=== PATIENT | female | born 1930 | race Caucasian/White ===

== ENCOUNTER 2019-01-07 15:12 | Emergency (ER) | payer MEDICARE, BC ==
[2019-01-07 15:21] VITALS: RESP 18
--- NOTE | 2019-01-07 15:41 | ED ---
Chest Pain HPI - General Chief Complaint: Chest Pain Stated Complaint: Chest pain Time Seen by Provider: 01/07/19 15:23 Source: patient, RN notes reviewed, old records reviewed Mode of arrival: ambulatory Limitations: no limitations - History of Present Illness Initial Comments: This is an 88-year-old female the ER for evasive chest pain. Patient does feel like to have history of prior pain symptoms still stating. She has an does admit to recent anxiety over a few different social issues. Patient has no recent traumas. No fever, no cough or congestion. No recent travel history sick contacts, not currently on any blood thinners. No diaphoresis no shortness of breath. MD Complaint: chest pain -: hour(s) Onset: during rest Pain Location: substernal, left chest Pain Radiation: LUE Severity: mild Severity scale (1-10): 3 Quality: aching Consistency: constant Improves With: nothing Worsens With: nothing Anginal Symptoms: nausea Treatments Prior to Arrival: none - Related Data Home Medications Medication Instructions Recorded Confirmed Ascorbic Acid [Vitamin C] 500 mg PO DAILY 01/07/19 01/07/19 Vitamin D3(Unknown Dose) 1 tab PO DAILY 01/07/19 01/07/19 Allergies Allergy/AdvReac Type Severity Reaction Status Date / Time No Known Allergies Allergy Verified 01/07/19 16:55 Review of Systems ROS Statement: Those systems with pertinent positive or pertinent negative responses have been documented in the HPI. ROS Other: All systems not noted in ROS Statement are negative. EKG Findings - EKG Comments: EKG Findings:: EKG shows sinus rhythm rate of 75, W[place] 154, QRS 90, QTc 424 Past Medical History Past Medical History: Pulmonary Embolus (PE), Thyroid Disorder History of Any Multi-Drug Resistant Organisms: None Reported Past Surgical History: Appendectomy, Hysterectomy, Tonsillectomy Additional Past Surgical History / Comment(s): gastric tumor removal Past Psychological History: No Psychological Hx Reported Smoking Status: Never smoker Past Alcohol Use History: Occasional Past Drug Use History: None Reported General Exam Limitations: no limitations General appearance: alert, in no apparent distress Head exam: Present: atraumatic, normocephalic, normal inspection Eye exam: Present: normal appearance, PERRL, EOMI. Absent: scleral icterus, conjunctival injection, periorbital swelling ENT exam: Present: normal exam, mucous membranes moist Neck exam: Present: normal inspection. Absent: tenderness, meningismus, lym phadenopathy Respiratory exam: Present: normal lung sounds bilaterally. Absent: respiratory distress, wheezes, rales, rhonchi, stridor Cardiovascular Exam: Present: regular rate, normal rhythm, normal heart sounds. Absent: systolic murmur, diastolic murmur, rubs, gallop, clicks GI/Abdominal exam: Present: soft, normal bowel sounds. Absent: distended, tenderness, guarding, rebound, rigid Extremities exam: Present: normal inspection, full ROM, normal capillary refill. Absent: tenderness, pedal edema, joint swelling, calf tenderness Back exam: Present: normal inspection Neurological exam: Present: alert, oriented X3, CN II-XII intact Psychiatric exam: Present: normal affect, normal mood Skin exam: Present: warm, dry, intact, normal color. Absent: rash Course Vital Signs 01/07/19 01/07/19 15:17 20:00 Temperature 98.7 F 98 F Pulse Rate 75 77 Respiratory 18 18 Rate Blood Pressure 170/86 148/78 O2 Sat by Pulse 97 97 Oximetry - Reevaluation(s) Reevaluation #1: Medical records reviewed Patient pain or distress Patient very relieved that she has no recurrent PE Chest Pain MDM - MDM 88 female the ER for evasive chest pain. Patient states she does have history of PE. Patient is not feel similar prior history of PE, CT is negative for PE. Patient can be discharged home Disposition Clinical Impression: Chest pain Disposition: HOME SELF-CARE Condition: Good Instructions (If sedation given, give patient instructions): Chest Pain (ED) Is patient prescribed a controlled substance at d/c from ED?: No Referrals: None,Stated [Primary Care Provider] - 1-2 days
[2019-01-07 16:18] LABS: Basophils % (A) 0 %; Eosinophils # (A) 0.1 k/uL (0-0.7); Eosinophils % (A) 2 %; Lymphocytes # (A) 1.5 k/uL (1.0-4.8); Lymphocytes % (A) 18 %; MCH 28.3 pg (25.0-35.0); MCHC 32.6 g/dL (31.0-37.0); MCV 86.7 fL (80.0-100.0); Monocytes # (A) 0.5 k/uL (0-1.0); Monocytes % (A) 6 %; Neutrophils # (A) 6.3 k/uL (1.3-7.7); Neutrophils % (A) 73 %; Platelet Count 266 k/uL (150-450); RBC 4.62 m/uL (3.80-5.40); RDW 13.3 % (11.5-15.5); WBC 8.7 k/uL (3.8-10.6)
--- NOTE | 2019-01-07 16:25 | XR ---
EXAMINATION TYPE: XR chest 2V DATE OF EXAM: 01/07/2019 COMPARISON: 01/16/2013 HISTORY: Shoulder pain chest pain TECHNIQUE: Frontal and lateral views of the chest are obtained. FINDINGS: There is no heart failure nor confluent pneumonic infiltrate. Costophrenic angles are kia r. Thoracic aorta is atheromatous. There are chest leads. IMPRESSION: No active cardiopulmonary disease. Normal heart. No change.
[2019-01-07 16:38] LABS: INR 0.9 (<1.2); Prothrombin Time 9.8 sec (9.0-12.0)
[2019-01-07 16:42] LABS: Partial Thromboplastin Time 18.3 sec (22.0-30.0)
[2019-01-07 16:46] LABS: Albumin 4.5 g/dL (3.5-5.0); Calcium 9.9 mg/dL (8.4-10.2); Magnesium 2.1 mg/dL (1.6-2.3); Potassium 4.4 mmol/L (3.5-5.1); Total Bilirubin 0.4 mg/dL (0.2-1.3); Total Protein 7.1 g/dL (6.3-8.2)
--- NOTE | 2019-01-07 19:15 | CT ---
EXAMINATION TYPE: CT angio chest DATE OF EXAM: 01/07/2019 6:44 PM COMPARISON: 12/08/2011 HISTORY: chest pain. hx of PE. CT DLP: 266.6 mGycm Automated exposure control for dose reduction was used. CONTRAST: CTA scan of the thorax is performed with IV Contrast, patient injected with 73cc mL of Isovue 370, pu lmonary embolism protocol. . There are 3-D post processed images. FINDINGS: There is some coarse linear density at the lung bases. Heart is enlarged. There is no pericardial eff usion. There is no pleural effusion. There is hiatal hernia. There is no evidence of a pulmonary mass . There is no mediastinal adenopathy. Thoracic aorta is atheromatous. Ascending aorta measures 4 cm. Th ere is no dissection. There is normal contrast opacification of the pulmonary arteries. There are no filling defects. There is spurring in the thoracic spine. IMPRESSION: NO EVIDENCE OF PULMONARY EMBOLISM. 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 THERE IS KATHRYN ARING OF THE EMBOLI IN THE LEFT LOWER LOBE PULMONARY ARTERY COMPARED TO OLD EXAM.
[2019-01-07 20:02] VITALS: BP 148/78; PULSE 77; TEMP 98
== END 2019-01-07 20:02 | disposition home or self-care (01) ==
LOC: EC 15:12
DX: R07.89 Other chest pain (principal); R11.0 Nausea; Z86.711 Personal history of pulmonary embolism
CPT/HCPCS: 36415; 93005; 80053; 83735; 84484; 85025; 85610; 85730; 71046; 71275; 99285; Q9967